=== PATIENT | female | born 1930 | race Caucasian/White ===

== ENCOUNTER → 2018-02-08 | Outpatient (CLI) | payer MEDICARE ==
[~2018-02-08] MED LIST: ALE10 PO; APIX2.5T PO; APIX5TAB PO; ASCO500C9 PO; AZI250 PO; AZIT1PAC21 PO; CA C1TAB6 PO; CALC-852 PO; CALC600T82 PO; CHOL10005 PO; CHOL100058 PO; CHOL200074 PO; CYAN100017 PO; DILT180C4 PO; DOCU-416 PO; GINK120C PO; HYDR-317 PO; LOR5/325 PO; METO100T20 PO; MU-V1TAB29 PO; OLM20 PO; OLME1TAB63 PO; OXYB10TA16 PO; OXYB10TA21 PO; OXYB5TAB86 PO; PHEN200T32 PO; SULF-198 PO
[2018-02-08 16:50] LABS: PLATELET COUNT, AUTOMATED 160 K/uL (150-450)
== END ==
LOC: LAB 16:27
PROVIDERS: ATTEND Family Medicine
DX: I48.91 Unspecified atrial fibrillation (principal); Z87.39 Personal history of other diseases of the musculoskeletal system and connective tissue; I10 Essential (primary) hypertension
CPT/HCPCS: 36415; 82040; 82247; 82310; 82374; 82435; 82565; 82947; 84075; 84132; 84155; 84295; 84450; 84460; 84520; 85025

== ENCOUNTER → 2018-04-30 | Outpatient (REF) | payer MEDICARE | LOC: ZZSENDIN 16:50 | PROVIDERS: ATTEND Urology | DX: C67.9 Malignant neoplasm of bladder, unspecified (principal); R31.1 Benign essential microscopic hematuria; R82.79 Other abnormal findings on microbiological examination of urine | CPT/HCPCS: 81001; 87088; 88108 ==

== ENCOUNTER → 2018-06-07 | Outpatient (CLI) | payer MEDICARE ==
[~2018-06-07] MED LIST changes: +DILT-104 PO; +HYDR-653 PO
--- NOTE | 2018-06-07 14:14 | RADIOLOGY IMAGING REPORT ---
FACILITY: [facility] PATIENT NAME: Naima Grant : 1930 MR: [id number] V: [id number] EXAM DATE: ORDERING PHYSICIAN: ASHUTOSH MENDEZ TECHNOLOGIST: Location: [facility] Patient: Naima Grant : 1930 Visit/Account:[id number] Date of Sevice: 06/07/2018 DEXA Scan Clinical history: Screening, osteoporosis. Comparison: DEXA scan from 12/04/2013. LUMBAR SPINE: The bone mineral density (BMD) measured from L1-L3 correlates with a Z-score of 3.5 and a T-score of 1 which is Normal as defined by the World Health Organization. The corresponding risk of fracture in the lumbar spine is Not increased compared with a young adult reference population. This value has increase by 2.5 % since the prior study. More than 5% change is considered significant. HIP: Bone mineral density (BMD) measured in the LEFT total hip region correlates with a Z-score 0.2 and a T-score of -2.6 which is osteoporosis as defined by the World Health Organization. The corresponding risk of fracture in the hip is 68 times increased compared to a young adult reference population. Th is value has decrease by 9.1 % since the prior study. More than 5% change is considered significant. T score left femoral neck -1.8 Bone mineral density (BMD) measured in the Femoral Neck region measures 0.790 g/cm?. IMPRESSION: 1. Lumbar spine: Normal. There has been 2.5% increase in the bone mineral density since the previou s exam. 2. Left Total Hip: Osteoporosis. There has been 9.1% decrease in the bone mineral density since the previous exam. 3. Femoral Neck: Bone Mineral Density is 0.790 g/cm? The next DEXA scan of this patient should include the following sites: L1-L3 and the left hip. FRAX? WHO Fracture Risk Assessment Tool link: <http://www.shef.ac.uk/FRAX/tool.jsp?locationValue=9> PLEASE NOTE: 1) The World Health Organization defines low BMD as follows: T-score Normal > -1 Osteopenia < -1 and > -2.5 Osteoporosis < -2.5 without fractures Established osteoporosis < -2.5 with fractures 2) In general, you may wish to consider: Diagnosis Treatment Follow-up DEXA Normal BMD Prevention 2-3 years Osteopenia Prevention/therapy 1-2 years Osteoporosis Therapy Yearly 3) Fracture risk estimated from the T-score is more accurate for vertebral fractures (often spontane ous) than for hip fractures. Report Dictated By: Rajani Lane MD at 06/07/2018 2:07 PM Report E-Signed By: Rajani Lane MD at 06/07/2018 2:09 PM LARRYN:[email or web address]
--- NOTE | 2018-06-08 09:02 | RADIOLOGY IMAGING REPORT ---
FACILITY: [facility] PATIENT NAME: CRISTINO STARR : [id number] MR: [id number] V: [id number] EXAM DATE: ORDERING PHYSICIAN: ASHUTOSH MENDEZ TECHNOLOGIST: Shahida Campbell PROCEDURE:BILATERAL DIGITAL SCREENING MAMMOGRAM WITH CAD ASSISTED INTERPRETATION & 3D TOMOSYNTHESIS COMPARISON:Prior mammograms 12/04/13, 09/19/11. INDICATIONS:SCREENING FINDINGS: The breasts are heterogeneously dense which can obscure small masses. The parenchymal pattern has remained stable allowing for difference in mammographic technique & patient positioning. DIAGNOSTIC CATEGORY 1--NEGATIVE. RECOMMENDATIONS: ROUTINE MAMMOGRAM AND CLINICAL EVALUATION. IMPRESSION: BIRADS 1: Negative. No significant abnormality is seen. Dictated by: Rajani Lane M.D. on 06/07/2018 at 18:05 Transcribed by: PORTIA on 06/08/2018 at 8:39 Approved by: Rajani Lane M.D. on 06/08/2018 at 9:01 [facility]
== END ==
LOC: MAMO 00:39
PROVIDERS: ATTEND Family Medicine
DX: Z12.31 Encounter for screening mammogram for malignant neoplasm of breast (principal); M81.0 Age-related osteoporosis without current pathological fracture
CPT/HCPCS: 77063; 77067; 77080

== ENCOUNTER → 2018-09-12 | Outpatient (REF) | payer MEDICARE ==
[~2018-09-12] MED LIST changes: +METO25TA23 PO
== END ==
LOC: ZZSENDIN 12:00
PROVIDERS: ATTEND Urology
DX: R31.9 Hematuria, unspecified (principal)
CPT/HCPCS: 88108

== ENCOUNTER → 2018-12-03 | Outpatient (CLI) | payer MEDICARE ==
[2018-12-03 15:20] LABS: PLATELET COUNT, AUTOMATED 170 K/uL (150-450)
== END ==
LOC: LAB 14:53
PROVIDERS: ATTEND Family Medicine
DX: M81.0 Age-related osteoporosis without current pathological fracture (principal); I10 Essential (primary) hypertension
CPT/HCPCS: 36415; 82306; 82310; 82374; 82435; 82565; 82947; 84132; 84295; 84520; 85025

== ENCOUNTER → 2018-12-12 | Outpatient (REF) | payer MEDICARE | LOC: ZZSENDIN 12:00 | PROVIDERS: ATTEND Urology | DX: C67.9 Malignant neoplasm of bladder, unspecified (principal) | CPT/HCPCS: 88108 ==